=== PATIENT | female | born 1940 | race Caucasian/White ===

== ENCOUNTER 2016-11-16 07:46 | Emergency (ER) | payer OTHER ==
[~2016-11-16] VITALS: Ht 160 cm; Wt 64.0 kg
[2016-11-16 08:20] LABS: EOSINOPHIL (%) 2.8 % (0-5); EOSINOPHIL COUNT 0.3 K/uL (0-0.3); HEMATOCRIT 42.7 % (36.0-46.0); IMMATURE GRANULOCYTE (%) 0.4 % (0.0-0.7); INSTRUMENT ABS NEUTROPHIL CT 6.5 K/uL; LYMPHOCYTE COUNT 1.7 K/uL (1.0-2.8); MCH 31.3 PG (29.0-34.0); MCV 94.7 FL (83-99); MEAN PLAT.VOLUME 8.8 uM^3 (9.5-12.4); MONOCYTE (%) 10.4 % (3-12); NEUTROPHIL (%) 68.2 % (45-76); NEUTROPHIL COUNT 6.5 K/uL (1.8-6.4); PLATELET COUNT 500 K/uL (156-360); RBC DIS.WIDTH-CV 13.6 % (11.8-14.6); RED BLOOD COUNT 4.51 M/uL (3.80-5.20); WHITE BLOOD COUNT 9.5 K/uL (4.1-10.2)
[2016-11-16 08:31] LABS: CHLORIDE 105 mEq/L (99-109); POTASSIUM 4.7 mEq/L (3.7-5.4); SODIUM 137 mEq/L (136-147)
[2016-11-16 08:33] LABS: GLUCOSE 102 mg/dL (70-99)
[2016-11-16 08:34] LABS: ANION GAP 9 MEQ/L (2-14)
[2016-11-16 08:37] LABS: GFR ESTIMATE (CALCULATED) 58 mL/min/
[2016-11-16 08:38] LABS: UREA NITROGEN (BUN) 24 mg/dL (9-23)
[2016-11-16] MEDS ORDERED: PERCOCET 5/31 TABLET PO (11:27)
[2016-11-16 11:55] VITALS: BP 137/70
[2016-11-16] MEDS ORDERED: PLAVIX75 MG PO (11:57)
[2016-11-16] MEDS ORDERED: LO-DOSE ASPIRIN81 M2 PO (11:57)
[2016-11-16] MEDS ORDERED: VITAMIN D22000 UNIT PO (11:58)
[2016-11-16] MEDS ORDERED: ZESTRIL5 MG PO (11:58)
[2016-11-16] MEDS ORDERED: CRESTOR20 MG PO (11:58)
[2016-11-16] MEDS ORDERED: HYDROXYUREA500 MG PO (11:59)
== END 2016-11-16 12:01 | disposition home or self-care (01) ==
LOC: EME 07:46
PROVIDERS: Emergency Medicine
DX: S80.02XA Contusion of left knee, initial encounter (principal); S40.012A Contusion of left shoulder, initial encounter; S70.01XA Contusion of right hip, initial encounter; W17.89XA Other fall from one level to another, initial encounter; Y93.H2 Activity, gardening and landscaping; Y92.096 Garden or yard of other non-institutional residence as the place of occurrence of the external cause; D47.3 Essential (hemorrhagic) thrombocythemia; Z96.641 Presence of right artificial hip joint; I10 Essential (primary) hypertension; Z79.02 Long term (current) use of antithrombotics/antiplatelets; Z79.82 Long term (current) use of aspirin; Z87.891 Personal history of nicotine dependence
CPT/HCPCS: 73030; 73502; 73564; 80048; 85025; 93005; 99281; 99285

== ENCOUNTER 2017-01-10 07:46 | Observation (INO) | payer OTHER ==
[~2017-01-10] VITALS: Ht 160 cm; Wt 65.9 kg
[~2017-01-10 07:46] MED LIST: CRESTOR20 MG PO; HYDROXYUREA500 MG PO; LO-DOSE ASPIRIN81 M2 PO; PERCOCET 5/31 TABLET PO; PLAVIX75 MG PO; VITAMIN D22000 UNIT PO; ZESTRIL5 MG PO
[2017-01-10 09:54] LABS: EOSINOPHIL (%) 1.2 % (0-5); EOSINOPHIL COUNT 0.1 K/uL (0-0.3); HEMATOCRIT 44.6 % (36.0-46.0); IMMATURE GRANULOCYTE (%) 0.2 % (0.0-0.7); INSTRUMENT ABS NEUTROPHIL CT 5.9 K/uL; LYMPHOCYTE COUNT 1.4 K/uL (1.0-2.8); MCH 31.9 PG (29.0-34.0); MCHC 32.5 G/DL (30.0-36.0); MEAN PLAT.VOLUME 9.3 uM^3 (9.5-12.4); MONOCYTE (%) 7.5 % (3-12); MONOCYTE COUNT 0.6 K/uL (0-0.8); NEUTROPHIL (%) 73.1 % (45-76); NEUTROPHIL COUNT 5.9 K/uL (1.8-6.4); PLATELET COUNT 460 K/uL (156-360); RBC DIS.WIDTH-CV 14.1 % (11.8-14.6); RBC DIS.WIDTH-SD 50.4 % (39-53); RED BLOOD COUNT 4.55 M/uL (3.80-5.20); WHITE BLOOD COUNT 8.1 K/uL (4.1-10.2)
[2017-01-10 10:04] LABS: CHLORIDE 109 mEq/L (99-109); POTASSIUM 4.8 mEq/L (3.7-5.4); SODIUM 140 mEq/L (136-147)
[2017-01-10 10:06] LABS: GLUCOSE 108 mg/dL (70-99)
[2017-01-10 10:07] LABS: ANION GAP 12 MEQ/L (2-14)
[2017-01-10 10:08] LABS: PROTHROMBIN TIME 9.9 (9.2-11.2); PTT 25.6 (25-32); TOTAL BILIRUBIN 0.3 mg/dL (0.0-1.0)
[2017-01-10 10:09] LABS: ALKALINE PHOSPHATASE 88 IU/L (3-129)
[2017-01-10 10:10] LABS: GFR ESTIMATE (CALCULATED) > 59 mL/min/
[2017-01-10 10:11] LABS: UREA NITROGEN (BUN) 28 mg/dL (9-23)
[2017-01-10 12:09] LABS: ADD MIUA? YES; BILIRUBIN NEGATIVE; BLOOD SMALL; COLOR YELLOW ((YELLOW)); GLUCOSE (STRIP) NEGATIVE; KETONES NEGATIVE; LEUKOCYTES NEGATIVE; NITRITE NEGATIVE; PROTEIN (STRIP) NEGATIVE; SPECIFIC GRAVITY 1.024 (1.000-1.030); UROBILINOGEN 0.2 MG/DL (0.2-1.0)
[2017-01-10 12:12] LABS: BACTERIA RARE /HPF; EPITHELIAL CELLS RARE /HPF; MUCUS TRACE /LPF; RED BLOOD CELLS 0-5 /HPF (0-5); WHITE BLOOD CELLS 0-5 /HPF (0-5)
[2017-01-10] MEDS ORDERED: ASPIRIN325 MG PO (13:32)
[2017-01-10] MEDS ORDERED: VITAMIN D5000 UNI1 PO (13:33)
[2017-01-10] MEDS ORDERED: DAILY VALUE1 EACH PO (13:34)
[2017-01-10 14:16] VITALS: BP 192/105
[2017-01-10 15:23] VITALS: BP 151/85
[2017-01-10 15:52] VITALS: BP 195/81
[2017-01-10 17:57] VITALS: BP 170/74
[2017-01-10 21:45] VITALS: BP 119/56
[2017-01-10 22:23] LABS: MCV 97.6 FL (83-99)
[2017-01-10 23:33] VITALS: BP 118/57
[2017-01-11 04:28] VITALS: BP 123/59
[2017-01-11 06:05] LABS: HEMATOCRIT 37.6 % (36.0-46.0); MCH 32.7 PG (29.0-34.0); MCHC 33.2 G/DL (30.0-36.0); MCV 98.4 FL (83-99); MEAN PLAT.VOLUME 9.4 uM^3 (9.5-12.4); PLATELET COUNT 388 K/uL (156-360); RBC DIS.WIDTH-CV 14.2 % (11.8-14.6); RBC DIS.WIDTH-SD 49.9 % (39-53); RED BLOOD COUNT 3.82 M/uL (3.80-5.20); WHITE BLOOD COUNT 5.7 K/uL (4.1-10.2)
[2017-01-11 06:32] LABS: ANION GAP 7 MEQ/L (2-14); C-REACTIVE PROTEIN 3.8 MG/L (0-10); CHLORIDE 110 MEQ/L (99-109); GFR ESTIMATE (CALCULATED) > 59 mL/min/; GLUCOSE 92 mg/dL (70-99); POTASSIUM 4.4 MEQ/L (3.7-5.4); SAMPLE HEMOLYSIS CHECK 0; SAMPLE ICTERIC CHECK 0; SAMPLE LIPEMIA CHECK 0; SODIUM 141 MEQ/L (136-147); UREA NITROGEN (BUN) 18 mg/dL (9-23)
[2017-01-11 08:39] LABS: INTERNAL CONTROL VALID? YES
[2017-01-11 09:09] VITALS: BP 131/63
[2017-01-11 09:19] LABS: C DIFF TOXIN NEGATIVE (NEGATIVE)
[2017-01-11 09:23] LABS: PROBE CHECK PASS; SPECIMEN PROCESSING CONTROL PASS
[2017-01-11 10:32] LABS: HEMATOCRIT 37.6 % (36.0-46.0); MCV 99.7 FL (83-99)
[2017-01-11 12:48] VITALS: BP 129/61
[2017-01-11 15:05] VITALS: BP 147/67
[2017-01-11 16:56] VITALS: BP 176/81
[2017-01-11 21:00] VITALS: BP 130/62
[2017-01-12 08:39] VITALS: BP 144/70
[2017-01-12 09:38] LABS: EOSINOPHIL (%) 2.1 % (0-5); EOSINOPHIL COUNT 0.1 K/uL (0-0.3); HEMATOCRIT 39.5 % (36.0-46.0); IMMATURE GRANULOCYTE (%) 0.6 % (0.0-0.7); INSTRUMENT ABS NEUTROPHIL CT 3.3 K/uL; LYMPHOCYTE COUNT 1.4 K/uL (1.0-2.8); MCH 32.1 PG (29.0-34.0); MCHC 32.7 G/DL (30.0-36.0); MCV 98.3 FL (83-99); MONOCYTE (%) 8.4 % (3-12); MONOCYTE COUNT 0.5 K/uL (0-0.8); NEUTROPHIL (%) 62.3 % (45-76); NEUTROPHIL COUNT 3.3 K/uL (1.8-6.4); PLATELET COUNT 425 K/uL (156-360); RBC DIS.WIDTH-CV 13.9 % (11.8-14.6); RBC DIS.WIDTH-SD 49.6 % (39-53); RED BLOOD COUNT 4.02 M/uL (3.80-5.20); WHITE BLOOD COUNT 5.3 K/uL (4.1-10.2)
[2017-01-12 10:20] LABS: ANION GAP 7 MEQ/L (2-14); CHLORIDE 107 MEQ/L (99-109); GFR ESTIMATE (CALCULATED) > 59 mL/min/; GLUCOSE 108 mg/dL (70-99); POTASSIUM 4.4 MEQ/L (3.7-5.4); SAMPLE HEMOLYSIS CHECK 0; SAMPLE ICTERIC CHECK 0; SAMPLE LIPEMIA CHECK 0; SODIUM 138 MEQ/L (136-147); UREA NITROGEN (BUN) 10 mg/dL (9-23)
[2017-01-12 12:09] VITALS: BP 123/63
[2017-01-12 19:00] VITALS: BP 132/65
[2017-01-13 06:54] LABS: HEMATOCRIT 36.6 % (36.0-46.0); MCH 32.7 PG (29.0-34.0); MCHC 33.3 G/DL (30.0-36.0); MCV 98.1 FL (83-99); MEAN PLAT.VOLUME 9.5 uM^3 (9.5-12.4); PLATELET COUNT 396 K/uL (156-360); RBC DIS.WIDTH-SD 49.6 % (39-53); RED BLOOD COUNT 3.73 M/uL (3.80-5.20); WHITE BLOOD COUNT 5.1 K/uL (4.1-10.2)
[2017-01-13 08:22] VITALS: BP 141/65
[2017-01-13 11:52] VITALS: BP 136/69
[2017-01-13] MEDS ORDERED: CIPRO500 MG PO (12:34)
[2017-01-13] MEDS ORDERED: FLAGYL500 MG PO (12:35)
== END 2017-01-13 16:09 | disposition home or self-care (01) ==
LOC: EME 07:46 → EDOF 13:12 → 5WEST 13:12 → EDOF 13:12 → 5WEST 15:40
PROVIDERS: Internal Medicine; Internal Medicine Gastroenterology; Nurse Practitioner Family
DX: K52.9 Noninfective gastroenteritis and colitis, unspecified (principal); K63.3 Ulcer of intestine; D12.0 Benign neoplasm of cecum; D12.5 Benign neoplasm of sigmoid colon; K57.30 Diverticulosis of large intestine without perforation or abscess without bleeding; D47.3 Essential (hemorrhagic) thrombocythemia; I10 Essential (primary) hypertension; E78.5 Hyperlipidemia, unspecified; Z79.82 Long term (current) use of aspirin; Z87.891 Personal history of nicotine dependence
CPT/HCPCS: 74177; 80053; 80069; 81003; 83630; 85014; 85018; 85025; 85027; 85379; 85610; 85730; 86140; 86900; 86901; 87040; 87177; 87493; 87506; 88305; 93005; 93970; 99281; 99284; C9113; G0378; J0360; J0744; J7030; J7040; S0030